=== PATIENT | male | born 1950 | race Caucasian/White ===

== ENCOUNTER 2018-04-30 07:26 | Day surgery (SDC) | payer BC, OTHER ==
[2018-04-30] MEDS ORDERED: Midazolam* 1 MG/ML 2 ML VIAL (2 MG) ONE ×2 (08:52→09:27)
[2018-04-30] MEDS ORDERED: acetaZOLAMIDE TAB* 250 MG ONE (09:53)
[2018-04-30] MEDS ORDERED: Cyclopentolate 1% OPTH.SOL* 2 ML BTL ONE (09:53)
[2018-04-30] MEDS ORDERED: Ketorolac 0.5% OPHTH (NF) 0.5 % 5 ML BTL ONE (09:53)
[2018-04-30] MEDS ORDERED: Lidocaine 2% EPI 1:200000 MPF*10-20 ML VIAL ONE (09:53)
[2018-04-30] MEDS ORDERED: Lidocaine 1%* 5 ML VIAL ONE (09:53)
[2018-04-30] MEDS ORDERED: Neomycin/Polymy/Dex OPTH.SUSP* MAXITROL 0.1% 5 ML ONE (09:53)
[2018-04-30] MEDS ORDERED: Phenylephrine 2.5% OPTH.SOL* 2 ML BTL ONE (09:53)
[2018-04-30] MEDS ORDERED: Povidone Iodine 5% OPTH* 30 ML BTL ONE (09:53)
[2018-04-30 10:29] VITALS: BP 137/74
--- NOTE | 2018-04-30 21:28 | OP ---
DATE OF OPERATION: 04/30/18 - [facility] DATE OF : 50 SURGEON: Damián Goss M.D. PREOPERATIVE DIAGNOSES: Cataract and glaucoma, right eye. POSTOPERATIVE DIAGNOSES: Cataract and glaucoma, right eye. OPERATIVE PROCEDURE: Extracapsular cataract extraction with intraocular lens implant and iStent, right eye. DESCRIPTION OF PROCEDURE: The patient was brought to the operating room after being given 1/2% Alcaine with epinephrine drops in the preoperative area. The eye was prepped and draped in the usual sterile fashion. Sterile drape and eyelid speculum were placed. Again, topical 1/2% Alcaine with epinephrine was given. A paracentesis incision was made at the 9 o'clock position with the No.75 blade. Clear cornea incision 2.2 x 2.2-mm was created at the 12 o'clock position starting at the anterior limbus using the 2.2-mm keratome. The anterior chamber was irrigated with 0.4 mL of 1% non-preservative intracameral lidocaine and filled with DisCoVisc. A capsulorrhexis was completed using the cystotome and the Utrata forceps. Hydrodissection was performed with balanced salt solution. The lens nucleus was removed with the Phacoemulsification handpiece without incident. Cortex was removed with the irrigation-aspiration handpiece. The capsular bag was re-inflated using DisCoVisc and an SN60WF 13.5 implant was inserted with the shooter followed by an iStent [id number] inserted with the shooter into Schlemm's canal at the 3 o'clock position. The irrigation -aspiration hand-piece was used to remove all residual DisCoVisc. The eye was refilled with balanced salt solution and the wound checked and found to be watertight. Topical Maxitrol drops were given. [id number]/[facility] #: [id number] [facility]OS[facility]ITALGabbie
== END 2018-04-30 10:18 | disposition home or self-care (01) ==
LOC: OREAST 07:26
PROVIDERS: ATTEND Specialist
DX: H25.811 Combined forms of age-related cataract, right eye (principal); H40.1131 Primary open-angle glaucoma, bilateral, mild stage; J44.9 Chronic obstructive pulmonary disease, unspecified; Z87.891 Personal history of nicotine dependence; I10 Essential (primary) hypertension; K21.9 Gastro-esophageal reflux disease without esophagitis; R31.29 Other microscopic hematuria; E78.2 Mixed hyperlipidemia; M16.9 Osteoarthritis of hip, unspecified; Z68.26 Body mass index [BMI] 26.0-26.9, adult
CPT/HCPCS: A9270-GY; C1783; J2250; V2632

== ENCOUNTER 2018-05-07 06:49 | Day surgery (SDC) | payer BC, OTHER ==
[~2018-05-07 06:49] MED LIST: Acetaminophen TAB* 325 MG PO PRN; Buffered Lidocaine 0.9% SYRIN* 5 ML/SYR SYRINGE INTRADERM ONE
[2018-05-07] MEDS ORDERED: Midazolam* 1 MG/ML 2 ML VIAL (2 MG) ONE (08:30)
[2018-05-07 08:59] VITALS: BP 130/66
[2018-05-07] MEDS ORDERED: Phenylephrine 2.5% OPTH.SOL* 2 ML BTL ONE (09:50)
[2018-05-07] MEDS ORDERED: Neomycin/Polymy/Dex OPTH.SUSP* MAXITROL 0.1% 5 ML ONE (09:50)
[2018-05-07] MEDS ORDERED: Proparacaine 0.5% OPHTH.SOL* 15 ML BTL ONE (09:50)
[2018-05-07] MEDS ORDERED: Ketorolac 0.5% OPHTH (NF) 0.5 % 5 ML BTL ONE (09:50)
[2018-05-07] MEDS ORDERED: Povidone Iodine 5% OPTH* 30 ML BTL ONE (09:50)
[2018-05-07] MEDS ORDERED: Lidocaine 1%* 5 ML VIAL ONE (09:50)
[2018-05-07] MEDS ORDERED: Cyclopentolate 1% OPTH.SOL* 2 ML BTL ONE (09:50)
[2018-05-07] MEDS ORDERED: Lidocaine 2% EPI 1:200000 MPF*10-20 ML VIAL ONE (09:50)
[2018-05-07] MEDS ORDERED: acetaZOLAMIDE TAB* 250 MG ONE (09:50)
--- NOTE | 2018-05-07 13:06 | OP ---
OPERATIVE NOTE: DATE OF OPERATION: 05/07/18. DATE OF : 50. SURGEON: Damián Goss M.D. PREOPERATIVE DIAGNOSIS: Cataract left eye, primary open angle glaucoma, left eye, mild stage. POSTOPERATIVE DIAGNOSIS: Cataract left eye, primary open angle glaucoma, left, mild stage. OPERATIVE PROCEDURE: Extracapsular cataract extraction with intraocular lens implant left eye with i Stent. PROCEDURE: The patient was brought to the operating room after being given 1/2% Alcaine with epineph rine drops in the preoperative area. The eye was prepped and draped in the usual sterile fashion. S terile drape and eyelid speculum were placed. Again, topical 1/2% Alcaine with epinephrine was given . A paracentesis incision was made at the 3 o'clock position with the No.75 blade. Clear cornea inc ision 2.2 x 2.2-mm was created at the 6 o'clock position starting at the anterior limbus using the 2. 2-mm keratome. The anterior chamber was irrigated with 0.4 mL of 1% non-preservative intracameral li docaine and filled with DisCoVisc. A capsulorrhexis was completed using the cystotome and the Utrata forceps. Hydrodissection was performed with balanced salt solution. The lens nucleus was removed wi th the Phacoemulsification handpiece without incident. Cortex was removed with the irrigation-aspira tion handpiece. The capsular bag was re-inflated using DisCoVisc and an SN60WF 14.5 Implant was inse rted with the shooter followed by iStent [id number] inserted into Schlemm's canal with the vocational coordinator at t he 8 o'clock position. The irrigation-aspiration handpiece was used to remove all residual DisCoVisc . The eye was refilled with balanced salt solution and the wound checked and found to be watertight. Topical Maxitrol drops were given. [id number]/[facility] #: [id number]
== END 2018-05-07 09:06 | disposition home or self-care (01) ==
LOC: OREAST 06:49
PROVIDERS: ATTEND Specialist
DX: H25.812 Combined forms of age-related cataract, left eye (principal); H40.1131 Primary open-angle glaucoma, bilateral, mild stage; Z87.891 Personal history of nicotine dependence; E78.2 Mixed hyperlipidemia; Z68.26 Body mass index [BMI] 26.0-26.9, adult; I10 Essential (primary) hypertension; K21.9 Gastro-esophageal reflux disease without esophagitis; M19.90 Unspecified osteoarthritis, unspecified site; F32.9 Major depressive disorder, single episode, unspecified
CPT/HCPCS: A9270-GY; C1783; J2250; V2632